=== PATIENT | male | born 1990 | race Caucasian/White ===

== ENCOUNTER → 2019-07-19 | Outpatient (CLI) | payer BC | END | disposition home or self-care (01) | LOC: CFH 11:04 → MERGE 11:04 | PROVIDERS: ATTEND Family Medicine | DX: T14.90XA Injury, unspecified, initial encounter (principal); M54.89 Other dorsalgia; F12.10 Cannabis abuse, uncomplicated; F17.200 Nicotine dependence, unspecified, uncomplicated; R60.0 Localized edema; X58.XXXA Exposure to other specified factors, initial encounter; Y93.89 Activity, other specified; Y92.89 Other specified places as the place of occurrence of the external cause; Y99.8 Other external cause status ==

== ENCOUNTER 2019-07-21 13:55 | Inpatient (IN) ==
[~2019-07-21] VITALS: Ht 182.9 cm; Wt 68.6 kg
[2019-07-21 14:26] LABS: BASOPHILS # (AUTO) 0.01 x10^3/uL (0-0.1); BASOPHILS % (AUTO) 0 % (0-1); EOSINOPHILS % (AUTO) 0 % (1-7); LYMPHOCYTES # (AUTO) 0.63 x10^3/uL (1-3.4); LYMPHOCYTES % (AUTO) 5 % (22-44); MD NO; MEAN CORPUSCULAR HEMOGLOBIN 32.3 pg (27.5-34.5); MEAN CORPUSCULAR VOLUME 97.9 fL (81-97); MEAN PLATELET VOLUME 8.1 fL (7.4-10.4); MONOCYTES # (AUTO) 0.69 x10^3/uL (0.2-0.8); MONOCYTES % (AUTO) 6 % (2-9); NEUTROPHILS # (AUTO) 10.63 x10^3/uL (1.8-6.8); NEUTROPHILS % (AUTO) 89 % (42-75); PLATELET COUNT 221 x10^3/uL (130-400); RED BLOOD COUNT 5.03 x10^6/uL (4.38-5.82)
[2019-07-21] MEDS ORDERED: SODIUM CHLORIDE 0.9% 1,000ML IVBOLUS ONE (14:30)
[2019-07-21] MEDS ORDERED: SODIUM CHLORIDE FLUSH 10ML SYR IVF ONE (14:30)
[2019-07-21 14:31] LABS: ALANINE AMINOTRANSFERASE 31 U/L (12-78); ALBUMIN 4.4 g/dL (3.4-5.0); ANION GAP 8 mmol/L (5-15); CALCIUM 9.2 mg/dL (8.5-10.1); CHLORIDE 107 mmol/L (98-107); CREATININE 1.06 mg/dL (0.7-1.3)
[2019-07-21 14:34] LABS: ALKALINE PHOSPHATASE 80 U/L (45-117); BILIRUBIN,TOTAL 0.8 mg/dL (0.2-1.0); TOTAL PROTEIN 7.7 g/dL (6.4-8.2)
--- NOTE | 2019-07-21 14:59 | NUR ---
NEEDS MEDS BEFORE CT
[2019-07-21] MEDS ORDERED: HYDROmorphone 2 MG/ML, 1ML IVPush ONE (15:00)
[2019-07-21] MEDS ORDERED: HYDROmorphone 1 MG/ML, 1ML VIAL ONE (15:00)
--- NOTE | 2019-07-21 15:10 | NUR ---
REPORT FROM FRANCISCO RN, ASSUME CARE OF PT AT THIS TIME. PT RATES ABD PAIN AT 9/10, ORDER FOR DILAUDID OBTAINED AND GIVEN. CT CALLED TO NOTIFY PT MORE COMFORTABLE AND CAN GO TO CT. CALL LIGHT WITHIN REACH. PT ADVISED OF POC INCLUDING ADMISSION.
[2019-07-21 15:21] LABS: CHOL/HDL RATIO 1.8; LDL/HDL RATIO 0.6 (0.5-3.0)
[2019-07-21] MEDS ORDERED: OMNIPAQUE 350 MG/ML, 100ML BOTTLE ONE (15:35)
--- NOTE | 2019-07-21 15:49 | NUR ---
ALL RESULTS BACK, PT FOR RECHECK.
--- NOTE | 2019-07-21 16:17 | NUR ---
PT RESTING COMFORTABLY, VSS, UPDATED IN COMPUTER. AWAITING ADMIT BED.
--- NOTE | 2019-07-21 16:55 | NUR ---
ATTEMPT TO CALL REPORT, RN UNAVAILABLE, WILL CALL BACK.
[2019-07-21] MEDS ORDERED: LORazepam 2 MG/ML, 1ML IV PRN ×5 (17:00)
[2019-07-21] MEDS ORDERED: ONDANSETRON ODT 4 MG PO PRN (17:00)
[2019-07-21] MEDS ORDERED: FOLIC ACID 5 MG/ML IM ONE (17:00)
[2019-07-21] MEDS ORDERED: OXYcodone IR 5MG TABLET PO PRN (17:00)
[2019-07-21] MEDS ORDERED: hydrALAzine 20 MG/ML, 1ML IVPush PRN (17:00)
[2019-07-21] MEDS ORDERED: LORazepam 0.5MG TABLET PO PRN (17:00)
[2019-07-21] MEDS ORDERED: LORazepam 1MG TABLET PO PRN ×3 (17:00)
--- NOTE | 2019-07-21 17:07 | NUR ---
REPORT TO LETI HUYNH READY FOR TRANSPORT.
[2019-07-21 17:34] VITALS: BP 161/96
[2019-07-21] MEDS: LACTATED RINGERS 1,000 ML IV SCH (17:36)
[2019-07-21] MEDS ORDERED: FOLIC ACID 1 MG TABLET PO ONE (18:00)
[2019-07-21] MEDS: morphine SULFATE 10 MG/ML, 1ML IVPush PRN ×2 (18:10→21:33)
[2019-07-21] MEDS: PANTOPROZOLE 40MG TABLET PO SCH (18:22)
[2019-07-21] MEDS: ENOXAPARIN 40 MG/0.4 ML SQ SCH (19:00)
[2019-07-21 19:41] VITALS: BP 149/93
[2019-07-21 22:24] LABS: MICROSCOPIC NOT IND
[2019-07-21 22:26] LABS: CULTURE INDICATED? NO
[2019-07-22 00:55] VITALS: BP 159/97
[2019-07-22] MEDS: ONDANSETRON 2MG/ML, 2ML IVPush PRN ×2 (00:58→10:24)
[2019-07-22] MEDS: LACTATED RINGERS 1,000 ML IV SCH (00:58)
[2019-07-22] MEDS: morphine SULFATE 10 MG/ML, 1ML IVPush PRN ×4 (00:58→19:37)
[2019-07-22 04:53] LABS: BASOPHILS # (AUTO) 0.03 x10^3/uL (0-0.1); BASOPHILS % (AUTO) 0 % (0-1); EOSINOPHILS % (AUTO) 1 % (1-7); LYMPHOCYTES # (AUTO) 0.72 x10^3/uL (1-3.4); LYMPHOCYTES % (AUTO) 5 % (22-44); MD NO; MEAN CORPUSCULAR HEMOGLOBIN 32.4 pg (27.5-34.5); MEAN CORPUSCULAR HGB CONC 33.4 g/dL (33.2-36.2); MEAN CORPUSCULAR VOLUME 96.8 fL (81-97); MEAN PLATELET VOLUME 8.1 fL (7.4-10.4); MONOCYTES # (AUTO) 1.03 x10^3/uL (0.2-0.8); MONOCYTES % (AUTO) 7 % (2-9); NEUTROPHILS # (AUTO) 11.96 x10^3/uL (1.8-6.8); NEUTROPHILS % (AUTO) 87 % (42-75); PLATELET COUNT 228 x10^3/uL (130-400); RED BLOOD COUNT 5.16 x10^6/uL (4.38-5.82); RED CELL DISTRIBUTION WIDTH 13.4 % (9.4-14.8)
[2019-07-22 05:03] LABS: ALANINE AMINOTRANSFERASE 22 U/L (12-78); ALBUMIN 3.6 g/dL (3.4-5.0); ANION GAP 5 mmol/L (5-15); CALCIUM 8.6 mg/dL (8.5-10.1); CHLORIDE 105 mmol/L (98-107); CREATININE 0.95 mg/dL (0.7-1.3)
[2019-07-22 05:07] LABS: ALKALINE PHOSPHATASE 75 U/L (45-117); BILIRUBIN,TOTAL 0.7 mg/dL (0.2-1.0); TOTAL PROTEIN 6.8 g/dL (6.4-8.2)
[2019-07-22 07:02] VITALS: BP 157/103
[2019-07-22] MEDS: FOLIC ACID 1 MG TABLET PO SCH ×2 (08:55→09:00)
[2019-07-22] MEDS: D5%-LACTATED RINGERS 1,000 ML IV SCH ×3 (08:56→22:12)
[2019-07-22] MEDS: PANTOPROZOLE 40MG TABLET PO SCH (08:56)
[2019-07-22] MEDS ORDERED: THIAMINE 100 MG in DEXTROSE 5% 50 ML IVPB SCH (10:30)
[2019-07-22] MEDS: POTASSIUM CHLORIDE 20 MEQ, MAGNESIUM SULFATE 1 GM, FOLIC ACID 1 MG, THIAMINE 200 MG, MV... IV SCH (12:34)
[2019-07-22 13:35] VITALS: BP 145/92
[2019-07-22] MEDS: ENOXAPARIN 40 MG/0.4 ML SQ SCH (17:47)
[2019-07-22 19:36] VITALS: BP 146/94
[2019-07-22] MEDS: ACETAMINOPHEN 325 MG TABLET PO PRN (19:37)
[2019-07-23 01:06] VITALS: BP 136/87
[2019-07-23] MEDS: ACETAMINOPHEN 325 MG TABLET PO PRN (02:27)
[2019-07-23] MEDS: D5%-LACTATED RINGERS 1,000 ML IV SCH ×4 (04:33→22:37)
[2019-07-23] MEDS: PANTOPROZOLE 40MG TABLET PO SCH (07:30)
[2019-07-23] MEDS: FOLIC ACID 1 MG TABLET PO SCH (07:43)
[2019-07-23 08:00] VITALS: BP 133/90
[2019-07-23 08:52] LABS: ALANINE AMINOTRANSFERASE 21 U/L (12-78); ANION GAP 5 mmol/L (5-15); CALCIUM 8.2 mg/dL (8.5-10.1); CHLORIDE 105 mmol/L (98-107); CREATININE 0.84 mg/dL (0.7-1.3)
[2019-07-23 08:54] LABS: ALKALINE PHOSPHATASE 71 U/L (45-117); BILIRUBIN,TOTAL 0.8 mg/dL (0.2-1.0); TOTAL PROTEIN 6.2 g/dL (6.4-8.2)
[2019-07-23] MEDS ORDERED: THIAMINE 100 MG in DEXTROSE 5% 50 ML IVPB SCH (09:00)
[2019-07-23 09:04] LABS: BASOPHILS # (AUTO) 0.01 x10^3/uL (0-0.1); BASOPHILS % (AUTO) 0 % (0-1); EOSINOPHILS # (AUTO) 0.08 x10^3/uL (0-0.4); EOSINOPHILS % (AUTO) 1 % (1-7); LYMPHOCYTES # (AUTO) 0.83 x10^3/uL (1-3.4); LYMPHOCYTES % (AUTO) 9 % (22-44); MD NO; MEAN CORPUSCULAR HEMOGLOBIN 32.4 pg (27.5-34.5); MEAN CORPUSCULAR HGB CONC 33.7 g/dL (33.2-36.2); MEAN CORPUSCULAR VOLUME 96.1 fL (81-97); MEAN PLATELET VOLUME 8.1 fL (7.4-10.4); MONOCYTES # (AUTO) 0.91 x10^3/uL (0.2-0.8); MONOCYTES % (AUTO) 10 % (2-9); NEUTROPHILS # (AUTO) 7.72 x10^3/uL (1.8-6.8); NEUTROPHILS % (AUTO) 81 % (42-75); PLATELET COUNT 189 x10^3/uL (130-400); RED BLOOD COUNT 4.76 x10^6/uL (4.38-5.82); RED CELL DISTRIBUTION WIDTH 13.1 % (9.4-14.8)
[2019-07-23] MEDS: POTASSIUM CHLORIDE 20 MEQ, MAGNESIUM SULFATE 1 GM, FOLIC ACID 1 MG, THIAMINE 200 MG, MV... IV SCH (12:38)
[2019-07-23 15:28] LABS: ALANINE AMINOTRANSFERASE 21 U/L (12-78); ALBUMIN 3.2 g/dL (3.4-5.0); ANION GAP 2 mmol/L (5-15); CALCIUM 8.4 mg/dL (8.5-10.1); CHLORIDE 103 mmol/L (98-107); CREATININE 0.89 mg/dL (0.7-1.3)
[2019-07-23 15:30] LABS: ALKALINE PHOSPHATASE 68 U/L (45-117); BILIRUBIN,TOTAL 0.8 mg/dL (0.2-1.0); TOTAL PROTEIN 6.5 g/dL (6.4-8.2)
[2019-07-23 15:41] VITALS: BP 141/87
[2019-07-23] MEDS: ONDANSETRON 2MG/ML, 2ML IVPush PRN (15:59)
[2019-07-23] MEDS: morphine SULFATE 10 MG/ML, 1ML IVPush PRN (16:00)
[2019-07-23] MEDS: ENOXAPARIN 40 MG/0.4 ML SQ SCH (19:00)
[2019-07-23 19:59] VITALS: BP 118/74
[2019-07-24 00:23] VITALS: BP 120/76
[2019-07-24] MEDS: D5%-LACTATED RINGERS 1,000 ML IV SCH ×3 (05:21→23:12)
[2019-07-24 06:16] VITALS: BP 122/84
[2019-07-24] MEDS: PANTOPROZOLE 40MG TABLET PO SCH ×2 (06:27→08:44)
[2019-07-24] MEDS: FOLIC ACID 1 MG TABLET PO SCH (08:44)
[2019-07-24] MEDS: POTASSIUM CHLORIDE 20 MEQ, MAGNESIUM SULFATE 1 GM, FOLIC ACID 1 MG, THIAMINE 200 MG, MV... IV SCH (10:58)
[2019-07-24 13:18] VITALS: BP 121/82
[2019-07-24 19:36] VITALS: BP 129/78
[2019-07-24 20:00] VITALS: BP 128/70
[2019-07-24] MEDS: ENOXAPARIN 40 MG/0.4 ML SQ SCH (20:10)
[2019-07-25 02:26] VITALS: BP 117/75
[2019-07-25 05:10] LABS: ANION GAP 6 mmol/L (5-15); CALCIUM 8.3 mg/dL (8.5-10.1); CHLORIDE 107 mmol/L (98-107)
[2019-07-25 05:13] LABS: ALANINE AMINOTRANSFERASE 21 U/L (12-78); ALKALINE PHOSPHATASE 63 U/L (45-117); BILIRUBIN,TOTAL 0.5 mg/dL (0.2-1.0); CREATININE 0.84 mg/dL (0.7-1.3); TOTAL PROTEIN 6.3 g/dL (6.4-8.2)
[2019-07-25] MEDS: D5%-LACTATED RINGERS 1,000 ML IV SCH ×3 (06:25→15:19)
[2019-07-25 07:20] VITALS: BP 112/71
[2019-07-25] MEDS: FOLIC ACID 1 MG TABLET PO SCH (08:25)
[2019-07-25] MEDS: PANTOPROZOLE 40MG TABLET PO SCH (08:25)
[2019-07-25 13:19] VITALS: BP 125/75
[2019-07-25] MEDS ORDERED: D5%-LACTATED RINGERS 1,000 ML IV SCH (14:00)
[2019-07-25] MEDS: ENOXAPARIN 40 MG/0.4 ML SQ SCH (19:30)
[2019-07-25 19:37] VITALS: BP 128/77
[2019-07-26 00:32] VITALS: BP 125/76
[2019-07-26 05:19] LABS: ALBUMIN 3.4 g/dL (3.4-5.0); ANION GAP 6 mmol/L (5-15); CALCIUM 9.1 mg/dL (8.5-10.1); CHLORIDE 106 mmol/L (98-107)
[2019-07-26 05:24] LABS: ALANINE AMINOTRANSFERASE 23 U/L (12-78); ALKALINE PHOSPHATASE 64 U/L (45-117); BILIRUBIN,TOTAL 0.5 mg/dL (0.2-1.0); CREATININE 0.92 mg/dL (0.7-1.3)
[2019-07-26 07:40] VITALS: BP 117/81
[2019-07-26] MEDS: PANTOPROZOLE 40MG TABLET PO SCH (08:18)
[2019-07-26] MEDS: FOLIC ACID 1 MG TABLET PO SCH (08:18)
[2019-07-26 13:43] VITALS: BP 130/81
[2019-07-26] MEDS: D5%-LACTATED RINGERS 1,000 ML IV SCH ×2 (13:45→21:06)
[2019-07-26 19:28] VITALS: BP 134/79
[2019-07-26] MEDS: ENOXAPARIN 40 MG/0.4 ML SQ SCH (19:30)
[2019-07-27 03:08] VITALS: BP 100/60
[2019-07-27] MEDS: D5%-LACTATED RINGERS 1,000 ML IV SCH ×2 (05:46→13:45)
[2019-07-27] MEDS: PANTOPROZOLE 40MG TABLET PO SCH (06:32)
[2019-07-27 08:10] VITALS: BP 134/88
[2019-07-27] MEDS: FOLIC ACID 1 MG TABLET PO SCH (12:06)
[2019-07-27] MEDS ORDERED: FOLI-17 PO (12:36)
[2019-07-27] MEDS ORDERED: THIA100T67 PO (12:36)
[2019-07-27] MEDS ORDERED: PANT40TA5 PO (12:36)
== END 2019-07-27 15:50 | disposition home or self-care (01) | DRG 391 ==
LOC: ED 16:12 → EDIP 16:32 → 3N 17:31 → DCLOUNGE 07-27 15:40
PROVIDERS: ADMIT Hospitalist; ATTEND Hospitalist
DX: K29.20 Alcoholic gastritis without bleeding (principal); K85.20 Alcohol induced acute pancreatitis without necrosis or infection; F10.239 Alcohol dependence with withdrawal, unspecified; F12.90 Cannabis use, unspecified, uncomplicated; K29.00 Acute gastritis without bleeding; Z82.49 Family history of ischemic heart disease and other diseases of the circulatory system
CPT/HCPCS: 36415; 96361; 96374; 99285; J7121; 74177; 76700; 80053; 80061; 81003; 83690; 83735; 84100; 85025; G0378; J1170; J1650; J2405; J3411; J3475; J3480; Q9967; J2270; J7030; J7120